=== PATIENT | female | born 1980 | race Caucasian/White ===

== ENCOUNTER 2016-12-12 14:25 | Emergency (ER) | payer MEDICAID ==
[2016-12-12] MEDS ORDERED: Sodium Chloride 0.9% 1,000 ML IV STA (14:47)
[2016-12-12] MEDS ORDERED: Oxymetazoline 0.05% Nasal Spray (30 ml) NS STA (14:48)
--- NOTE | 2016-12-12 14:49 | ED PDOC ---
Arrival/HPI - General Chief Complaint: Abdominal Pain Time Seen by Provider: 12/12/16 14:39 Historian: Patient - History of Present Illness Narrative History of Present Illness (Text): 12/12/16 14:44 Ml Garcia is a 36 year old female who presents to the emergency department complaining of 1 week duration of runny nose and post nasal drip. Denies any throat pain, but states throat feels like "full of phlegm". No cough. Patient also notes of nausea, and multiple episodes of nbnb vomiting. Reports of abdominal pain only when vomiting. Denies any diarrhea. Denies fever, chills, headache, chest pain, shortness of breath, urinary symptoms, or any other complaints at this time. Time/Duration: 1 week Symptom Onset: Gradual Symptom Course: Worsening Severity Level: Mild Activities at Onset: Light Past Medical History - Provider Review Nursing Documentation Reviewed: Yes - Infectious Disease Hx of Infectious Diseases: None - Reproductive Menopause: No - Psychiatric Hx Substance Use: No Other/Comment: insomia - Surgical History Other/Comment: cyst removed from the ovary - Anesthesia Hx Anesthesia: Yes Hx Anesthesia Reactions: No Hx Malignant Hyperthermia: No Family/Social History - Physician Review Nursing Documentation Reviewed: Yes Family/Social History: No Known Family HX Smoking Status: Heavy Smoker > 10 Cigarettes Daily Hx Alcohol Use: No Hx Substance Use: No Allergies/Home Meds Allergies/Adverse Reactions: Allergies No Known Allergies Allergy (Verified 12/12/16 14:37) Home Medications: Home Meds Medication Instructions Recorded Confirmed Zolpidem [Ambien] 10 mg PO HS 12/12/16 12/12/16 Review of Systems - Physician Review All systems were reviewed & negative as marked: Yes - Review of Systems Constitutional: Normal. absent: Fatigue, Fevers ENT: Rhinorrhea, Other (Post nasal drip ) Respiratory: Normal. absent: SOB, Cough, Sputum Cardiovascular: absent: Chest Pain, Palpitations Gastrointestinal: Abdominal Pain, Nausea, Vomiting. absent: Diarrhea Genitourinary Female: Normal. absent: Dysuria Neurological: absent: Headache, Dizziness Psychiatric: Normal Physical Exam Vital Signs Reviewed: Yes Vital Signs Temp Pulse Resp BP Pulse Ox 12/12/16 18:16 98 F 74 19 128/82 98 12/12/16 17:36 98 F 85 19 127/74 95 12/12/16 14:30 98.1 F 85 20 140/81 98 Temperature: Afebrile Blood Pressure: Normal Pulse: Regular Respiratory Rate: Normal Appearance: Positive for: Well-Appearing, Non-Toxic, Comfortable Pain Distress: None Mental Status: Positive for: Alert and Oriented X 3 - Systems Exam Head: Present: Atraumatic, Normocephalic Pupils: Present: PERRL Conjunctiva: Present: Normal Ears: Present: Normal. No: NORMAL TM, Erythema Pharnyx: Present: Other (There is a tonsillith on the L tonsil; no erythema or warmth). No: ERYTHEMA, EXUDATE, TONSILS ENLARGED, Peritonsilar Swelling, Uvular Deviation, Muffled/Hoarse Voice, Strider, Soft Palate/Uvular Edema Respiratory/Chest: Present: Clear to Auscultation, Good Air Exchange. No: Respiratory Distress, Accessory Muscle Use Cardiovascular: Present: Regular Rate and Rhythm, Normal S1, S2. No: Murmurs Abdomen: Present: Normal Bowel Sounds. No: Tenderness, Distention, Peritoneal Signs, Rebound, Guarding Upper Extremity: Present: Normal Inspection. No: Cyanosis, Edema Lower Extremity: Present: Normal Inspection. No: Edema Neurological: Present: GCS=15, CN II-XII Intact, Speech Normal, Motor Func Grossly Intact, Normal Sensory Function Skin: Present: Warm, Dry, Normal Color. No: Rashes Psychiatric: Present: Alert, Oriented x 3, Normal Insight, Normal Concentration Medical Decision Making ED Course and Treatment: 12/12/16 14:58 Impression: A 36 year old female who presents to the emergency department complaining of runny nose and post nasal drip for past week. Also notes of nausea and vomiting for few days. Exam reveals non-swollen or erythematous tonsils but a tonsillith on the left side Differential Diagnosis include but are not limited to: Tonsillith irritation vs URI with post-nasal drip vs GERD. Plan: -- Labs -- Pepcid -- Zofran -- Sudafed -- IVF -- POC pregnanct test -- Urinalysis -- Reassess and disposition Progress Notes: 12/12/16 18:44 HCG is negative. Patient did not feel better after first round of meds but better after reglan, completion of IVF, and meclizine. - Lab Interpretations Lab Results: 12/12/16 15:45 12/12/16 16:45 Lab Results 12/12/16 16:45: Sodium 143, Potassium 4.0, Chloride 105, Carbon Dioxide 27, Anion Gap 15, BUN 6 L, Creatinine 0.7, Est GFR ( Amer) > 60, Est GFR (Non -Af Amer) > 60, Random Glucose 95, Calcium 9.5, Total Bilirubin 0.5, AST 26, ALT 21, Alkaline Phosphatase 61, Total Protein 8.5 H, Albumin 4.4, Globulin 4.1 , Albumin/Globulin Ratio 1.1, Amylase 76, Lipase 50 12/12/16 15:45: WBC 8.4, RBC 4.72, Hgb 11.8 L, Hct 35.5 L, MCV 75.2 L, MCH 25.0 , MCHC 33.2, RDW 14.4, Plt Count 349, MPV 11.5 H, Gran % 48.9 L, Lymph % (Auto) 39.5 H, [place] % (Auto) 8.5 H, Eos % (Auto) 2.6, Baso % (Auto) 0.5, Gran # 4.12, Lymph # 3.3, [place] # 0.7 H, Eos # 0.2, Baso # 0.04 12/12/16 14:30: Urine Color Yellow, Urine Appearance Clear, Urine pH 6.5, Ur Specific [place] <= 1.005, Urine Protein Negative, Urine Glucose (UA) Negative, Urine Ketones Negative, Urine Blood Large H, Urine Nitrate Negative, Urine Bilirubin Negative, Urine Urobilinogen 0.2, Ur Leukocyte Esterase Negative, Urine RBC Tntc, Urine WBC 0 - 2, Ur Epithelial Cells 1 - 3 - Medication Orders Current Medication Orders: Discontinued Medications Famotidine (Pepcid) 20 mg IVP STAT STA Stop: 12/12/16 14:48 Last Admin: 12/12/16 16:38 Dose: 20 mg Sodium Chloride (Sodium Chloride 0.9%) 1,000 mls @ 999 mls/hr IV .Q1H1M STA Stop: 12/12/16 15:47 Last Admin: 12/12/16 16:38 Dose: 999 mls/hr Meclizine HCl (Antivert) 12.5 mg PO STAT STA Stop: 12/12/16 17:40 Last Admin: 12/12/16 17:52 Dose: 12.5 mg Metoclopramide HCl (Reglan) 10 mg IVP STAT STA Stop: 12/12/16 17:40 Last Admin: 12/12/16 17:53 Dose: 10 mg Ondansetron HCl (Zofran Inj) 4 mg IVP STAT STA Stop: 12/12/16 14:48 Last Admin: 12/12/16 16:39 Dose: 4 mg Oxymetazoline HCl (Afrin 0.05%) 1 ml NS STAT STA Stop: 12/12/16 14:49 Last Admin: 12/12/16 16:39 Dose: 1 spray Pantoprazole Sodium (Protonix Inj) 40 mg IVP ONCE STA Stop: 12/12/16 17:40 Last Admin: 12/12/16 17:53 Dose: 40 mg Pseudoephedrine HCl (Sudafed Tab) 60 mg PO ONCE STA Stop: 12/12/16 14:48 Last Admin: 12/12/16 15:23 Dose: 60 mg - Scribe Statement The provider has reviewed the documentation as recorded by the Dariana Bautista Provider Attestation: Provider Scribe Attestation: All medical record entries made by the Phyllisibaj were at my direction and personally dictated by me. I have reviewed the chart and agree that the record accurately reflects my personal performance of the history, physical exam, medical decision making, and the department course for this patient. I have also personally directed, reviewed, and agree with the discharge instructions and disposition. Disposition/Present on Arrival - Present on Arrival Any Indicators Present on Arrival: No History of DVT/PE: No History of Uncontrolled Diabetes: No Urinary Catheter: No History of Decub. Ulcer: No History Surgical Site Infection Following: None - Disposition Have Diagnosis and Disposition been Completed?: Yes Diagnosis: Post-nasal drip, Vomiting, Tonsillith Disposition: HOME/ ROUTINE Disposition Time: 18:50 Patient Plan: Discharge Condition: GOOD Additional Instructions: Gargle with salt water for tonsillith discomfort and follow up with ENT. Take the medications as prescribed. Follow up with ENT and your primary care doctor. Prescriptions: Ondansetron ODT [Zofran ODT] 1 tab PO Q8H PRN #10 odt PRN Reason: Nausea/Vomiting Oxymetazoline 0.05% [Afrin 0.05%] 2 spr NS STAT #1 bottle Pseudoephedrine [Sudafed Tab] 2 tab PO Q6H PRN #24 tab PRN Reason: Nasal Congestion Ranitidine HCl [Zantac] 1 tab PO BID #20 tablet Referrals: [facility] [place] [Outside] - Follow up with primary Leland Molina DO [Staff Provider] - Follow up with primary
[2016-12-12 15:05] LABS: PH,URINE 6.5 (4.7-8.0); URINE BILIRUBIN NEGATIVE (NEGATIVE); URINE BLOOD LARGE (NEGATIVE); URINE GLUCOSE (UA) NEGATIVE (NEGATIVE); URINE LEUKOCYTE ESTERASE NEGATIVE Leu/uL (NEGATIVE); URINE NITRATE NEGATIVE (NEGATIVE); URINE PROTEIN NEGATIVE mg/dL (<30 mg/dL); URINE UROBILINOGEN 0.2 E.U./dL (<1 E.U./dL)
[2016-12-12 15:20] LABS: URINE APPEARANCE CLEAR (CLEAR); URINE COLOR YELLOW (YELLOW)
[2016-12-12 15:21] LABS: URINE RBC TNTC /hpf (0-2); URINE WBC 0 - 2 /hpf (0-6)
[2016-12-12 15:57] LABS: BASO # 0.04 K/mm3 (0.0-2.0); BASO % 0.5 % (0.0-3.0); EOS # 0.2 (0.0-0.7); EOS % 2.6 % (1.5-5.0); GRAN # 4.12 (1.4-6.5); GRAN % 48.9 % (50.0-68.0); HEMOGLOBIN 11.8 gm/dL (12.0-16.0); LYMPH # 3.3 (1.2-3.4); LYMPH % 39.5 % (22.0-35.0); MEAN CELL VOLUME 75.2 fL (80.0-105.0); MEAN CORPUSCULAR HGB CONC 33.2 g/dl (31.0-37.0); MEAN PLATELET VOLUME 11.5 fl (7.0-11.0); MONO # 0.7 (0.1-0.6); MONO % 8.5 % (1.0-6.0); PLATELET COUNT 349 10^3/uL (120.0-450.0); RBC 4.72 10^6/uL (3.5-6.1); RED CELL DISTRIBUTION WIDTH 14.4 % (11.5-14.5); WHITE BLOOD COUNT 8.4 10^3/ul (4.5-11.0)
[2016-12-12 17:13] LABS: ALB/GLOB RATIO 1.1 (1.1-1.8); ALBUMIN 4.4 g/dL (3.0-4.8); ALT/SGPT 21 U/L (7-56); AMYLASE 76 U/L (35-125); AST/SGOT 26 U/L (15-39); BLOOD UREA NITROGEN 6 mg/dL (7-21); CALCIUM 9.5 mg/dL (8.4-10.5); GFR AFRICAN-AMERICAN > 60; GFR NON-AFRICAN AMERICAN > 60; LIPASE 50 U/L (23-300)
[2016-12-12 17:37] VITALS: RESP 19; TEMP 98
[2016-12-12 18:18] VITALS: BP 128/82; PULSE 74; O2SAT 98
== END 2016-12-12 19:21 | disposition home or self-care (01) ==
LOC: ED 14:25
DX: R09.82 Postnasal drip (principal); R11.10 Vomiting, unspecified; J35.8 Other chronic diseases of tonsils and adenoids
CPT/HCPCS: 80053; 81001; 82150; 83690; 85025; 96361; 96374; 96375; 99285; C9113; J2405; J2765; J7040

== ENCOUNTER 2018-09-09 13:53 | Emergency (ER) | payer MEDICAID ==
[2018-09-09 14:17] VITALS: RESP 18; O2SAT 100
--- NOTE | 2018-09-09 14:37 | ED PDOC ---
Arrival/HPI - General Chief Complaint: GI Problem Time Seen by Provider: 09/09/18 14:04 Historian: Patient - History of Present Illness Narrative History of Present Illness (Text): 09/09/18 14:37 A 37 year old female, whose past medical history includes ovarian cyst, presents to the emergency department complaining of constipation for 4 days. Patient reports trying laxative, however has had no relief of symptom. Patient notes a lso experiencing nausea and vomiting prior to constipation starting, however denies any fever, chills, diarrhea, chest pain, shortness of breath, or any other complaints at this time. Currently on menstrual period. Past Medical History - Provider Review Nursing Documentation Reviewed: Yes - Infectious Disease Hx of Infectious Diseases: None - Reproductive Menopause: No - Cardiac Hx Cardiac Disorders: Yes Hx Hypertension: Yes - Psychiatric Hx Substance Use: No Other/Comment: insomnia - Surgical History Other/Comment: cyst removed from the ovary - Anesthesia Hx Anesthesia: Yes Hx Anesthesia Reactions: No Hx Malignant Hyperthermia: No Family/Social History - Physician Review Nursing Documentation Reviewed: Yes Family/Social History: No Known Family HX Smoking Status: Heavy Smoker > 10 Cigarettes Daily Hx Alcohol Use: No Hx Substance Use: No Allergies/Home Meds Allergies/Adverse Reactions: Allergies No Known Allergies Allergy (Verified 12/12/16 14:37) Home Medications: Home Meds Medication Instructions Recorded Confirmed Clonidine HCl [Catapres] 0.1 mg PO DAILY 09/09/18 09/09/18 Review of Systems - Physician Review All systems were reviewed & negative as marked: Yes - Review of Systems Constitutional: absent: Fevers, Night Sweats Respiratory: absent: SOB Cardiovascular: absent: Chest Pain Gastrointestinal: Constipation. absent: Diarrhea Physical Exam - Physical Exam Narrative Physical Exam (Text): Gen: NAD, cooperative, well appearing, non-toxic. Head: NCAT. HEENT: EYES: PERRL, EOMI, conjunctiva clear, MOUTH: moist MM, posterior pharynx without erythema or exudate, uvula midline. CV: (+) S1S2, RRR, no M/G/R LUNGS: CTA B/L, No W/R/R, good air movement Abd: Soft, tenderness to LLQ, somewhat distended, no guarding, rebound or rigidity. Neuro: AAO x 3, GCS 15, CN 2-12 intact, motor and sensory grossly intact, 5/5 muscle strength B/L UE's and LE's. ext: no cyanosis or edema Vital Signs Reviewed: Yes Vital Signs Temp Pulse Resp BP Pulse Ox 09/09/18 14:11 97.4 F L 80 18 117/77 100 Temperature: Afebrile Blood Pressure: Normal Pulse: Regular Respiratory Rate: Normal Appearance: Positive for: Well-Appearing, Non-Toxic, Comfortable Pain Distress: None Mental Status: Positive for: Alert and Oriented X 3 Medical Decision Making ED Course and Treatment: 09/09/18 14:38 Impression: 37 year old female with constipation. Physical exam shows tenderness to LLQ, somewhat distended, no rebound. Plan: -- POC Urine Test -- Abdominal X-Ray -- Reassess and disposition Progress Notes: 09/09/18 15:50 Patient is very well appearing and non-toxic. Vital signs are stable. I discussed the results of the work-up, diagnosis and treatment. Written discharge instructions were provided to patient. Additional verbal instructions were given and discussed with patient. We discussed the importance of follow up with PCP/consultants. I also reiterated reasons to immediately return to the ER including: worsening in current symptoms and/or new, continued, or concerning symptoms. Pt understood and agreed w/POC. - RAD Interpretation Narrative RAD Interpretations (Text): 09/09/18 15:53 Moderate amount constipation. Radiology Orders: 09/09/18 14:26 obstructive [ABD 2 VIEWS (FLAT/UP OR DECUB)] [RAD] Stat Vessel Operator: Radiologist - Scribe Statement The provider has reviewed the documentation as recorded by the Dariana Antonio Provider Scribe Attestation: All medical record entries made by the Phyllisibaj were at my direction and personally dictated by me. I have reviewed the chart and agree that the record accurately reflects my personal performance of the history, physical exam, medical decision making, and the department course for this patient. I have also personally directed, reviewed, and agree with the discharge instructions and disposition. Disposition/Present on Arrival - Present on Arrival Any Indicators Present on Arrival: No History of DVT/PE: No History of Uncontrolled Diabetes: No Urinary Catheter: No History of Decub. Ulcer: No History Surgical Site Infection Following: None - Disposition Have Diagnosis and Disposition been Completed?: Yes Diagnosis: Constipation Disposition: HOME/ ROUTINE Disposition Time: 15:54 Patient Plan: Discharge Condition: STABLE Discharge Instructions (ExitCare): Constipation, Adult (DC) Additional Instructions: NUBIA ANDERS, thank you for letting us take care of you today. Your provider was Bethany Joyce MD and you were treated for abdominal pain/ constipation/ vomiting. The emergency medical care you received today was directed at your acute symptoms. If you were prescribed any medication, please fill it and take as directed. It may take several days for your symptoms to resolve. Return to the Emergency Department if your symptoms worsen, do not improve, or if you have any other problems. Please contact your doctor for a follow up appointment in 2 days. Bring any paperwork you were given at discharge with you along with any medications you are taking to your follow up visit. Our treatment cannot replace ongoing medical care by a primary care provider outside of the emergency department. Thank you for allowing the [facility] team to be part of your care today. Referrals: Anna Rivera MD [Primary Care Provider] - Follow up with primary Forms: [employer] (Yoruba)
--- NOTE | 2018-09-09 15:39 | RAD ---
Date of service: 09/09/2018 HISTORY: Emesis. COMPARISON: None available. TECHNIQUE: 1 view obtained. FINDINGS: BOWEL: Nonspecific bowel gas pattern without finding to suggest obstruction. Moderate diffuse constipation. No definite free air. BONES: No acute osseous abnormality is detected. OTHER FINDINGS: None. IMPRESSION: Moderate diffuse constipation.
[2018-09-09 16:23] VITALS: BP 110/74; PULSE 76; TEMP 97.6
== END 2018-09-09 16:24 | disposition home or self-care (01) ==
LOC: ED 13:53
DX: K59.00 Constipation, unspecified (principal); I10 Essential (primary) hypertension; F17.210 Nicotine dependence, cigarettes, uncomplicated